=== PATIENT | female | born 1965 | race Caucasian/White ===

== ENCOUNTER 2019-01-31 18:22 | Emergency (ER) | payer OTHER, MEDICARE ==
[~2019-01-31] VITALS: Ht 162.6 cm; Wt 68.0 kg
[2019-01-31] MEDS ORDERED: TEGRETOL200 MG PO (19:37)
[2019-01-31] MEDS ORDERED: GABITRIL12 MG PO (19:39)
[2019-01-31] MEDS ORDERED: GABAPENTIN 100100 MG PO (19:39)
[2019-01-31] MEDS ORDERED: LAMICTAL 25 MG25 MG PO (19:41)
[2019-01-31] MEDS ORDERED: LAMOTRIGINE150 MG PO (19:41)
[2019-01-31] MEDS ORDERED: NABUMETONE 750750 M1 PO (19:43)
[2019-01-31 19:52] LABS: ABSOLUTE NEUTROPHILS 4.3 thou/uL (1.4-8.2); BASOPHILS 0.7 % (0.0-2.0); EOSINOPHILS 1.8 % (0.0-3.0); HEMATOCRIT 40.3 % (37.0-47.0); HEMOGLOBIN 13.6 gm/dL (12.0-15.0); LYMPHOCYTES 35.7 % (24.0-44.0); MCH 29.8 pg (26.0-34.0); MCHC 33.8 g/dL (28.0-37.0); PLATELET COUNT 197 thou/uL (150-400); POLYS 54.8 % (36.0-66.0); RBC 4.58 mil/uL (4.20-5.00); RDW 12.9 % (10.5-14.5); WBC 7.8 thou/uL (4.0-11.0)
[2019-01-31 20:02] LABS: ANION GAP 10 mmol/L (7-16); BUN 11 mg/dL (7-18); CALCIUM 9.5 mg/dL (8.5-10.1); CHLORIDE 108 mmol/L (98-107); CO2 26 mmol/L (21-32); CREATININE 0.9 mg/dL (0.6-1.0); GLUCOSE 105 mg/dL (74-106); POTASSIUM 3.5 mmol/L (3.5-5.1); SODIUM 144 mmol/L (136-145)
[2019-01-31 20:11] LABS: TROPONIN-I <0.06 ng/mL (<0.06)
[2019-01-31 20:49] LABS: URINE BILIRUBIN NEGATIVE (Negative); URINE BLOOD NEGATIVE (Negative); URINE CLARITY CLEAR; URINE COLOR YELLOW; URINE GLUCOSE-RANDOM* NEGATIVE (Negative); URINE KETONES TRACE (Negative); URINE LEUKOCYTES-REFLEX NEGATIVE (Negative); URINE NITRITE-REFLEX NEGATIVE (Negative); URINE PROTEIN (DIPSTICK) TRACE (Negative); URINE SPECIFIC GRAVITY >= 1.030 (1.005-1.035); URINE UROBILINOGEN 0.2 E.U./dl (0.2-1.0)
[2019-01-31 20:57] LABS: AMP/METHAMP Negative (Negative); BARBITURATES Negative (Negative); BENZODIAZEPINES Negative (Negative); COCAINE Negative (Negative); METHADONE Negative (Negative); OPIATES Negative (Negative); PCP Negative (Negative)
[2019-01-31 21:22] VITALS: BP 151/97
--- NOTE | 2019-02-01 07:38 | EKG ---
[place] [address] [employer] [place] [address] ELECTROCARDIOGRAM REPORT Name: MYA FISH Room #: [facility]#: [id number] ������������������ Admission: 01/31/19 ������������������ Attend Phys: Discharge: 01/31/19 ������������������ Date of : 63 Report #: [id number] ����������������������������������������������������������������� [id number] THIS REPORT FOR: //name// [facility] ED Test Date: 2019-01-31 Test Time: 18:47:34 Pat Name: MYA FISH Department: Room: Gender: F [employer]: [facility] : 1965 Requested By: Jf Grimes Order Number: [id number] MD: Edgard Sarabia Measurements Intervals [place] Rate: 81 P: 59 RI: 206 QRS: 40 QRSD: 83 T: 11 QT: 377 QTc: 438 Interpretive Statements Sinus rhythm Nonspecific ST and T wave abnormality No previous ECG available for comparison Electronically Signed On 02-01-2019 7:38:10 CDT by Edgard Sarabia [email or web address] ��������������������������������������������� <ELECTRONICALLY SIGNED> ���������������������������������������� By: Edgard Sarabia MD, [facility] ��������������������������������������������� 02/01/19 0738 1847 1847 Edgard Sarabia MD, FACC /EPI
== END 2019-01-31 21:26 | disposition home or self-care (01) ==
LOC: ER 18:22
PROVIDERS: Emergency Medicine
DX: R25.1 Tremor, unspecified (principal); G40.909 Epilepsy, unspecified, not intractable, without status epilepticus; G81.91 Hemiplegia, unspecified affecting right dominant side

== ENCOUNTER → 2019-11-10 | Outpatient (CLI) | payer OTHER, MEDICARE ==
[~2019-11-10] MED LIST: GABAPENTIN 100100 MG PO; GABITRIL12 MG PO; LAMICTAL 25 MG25 MG PO; LAMOTRIGINE150 MG PO; NABUMETONE 750750 M1 PO; TEGRETOL200 MG PO
== END ==
LOC: MRI 10:19
DX: S83.242A Other tear of medial meniscus, current injury, left knee, initial encounter (principal); M66.0 Rupture of popliteal cyst; X58.XXXA Exposure to other specified factors, initial encounter; Y93.89 Activity, other specified; Y92.89 Other specified places as the place of occurrence of the external cause; Y99.8 Other external cause status

== ENCOUNTER → 2020-11-25 | Emergency (ER) | payer OTHER, MEDICARE ==
[~2020-11-25] VITALS: Ht 157.5 cm; Wt 67.1 kg
[~2020-11-25] MED LIST changes: +CARBAMAZEPINE100 M2 PO; +LYRICA 75 MG CA75 MG PO; +METHYLPREDNISOL32 MG PO; +NEURONTIN100 MG PO
== END ==
LOC: ER 10:15
DX: S60.031A Contusion of right middle finger without damage to nail, initial encounter (principal); S60.041A Contusion of right ring finger without damage to nail, initial encounter; Z79.899 Other long term (current) drug therapy; W18.39XA Other fall on same level, initial encounter; Y93.89 Activity, other specified; Y92.89 Other specified places as the place of occurrence of the external cause; Y99.8 Other external cause status